=== PATIENT | male | born 1980 | race Caucasian/White ===

== ENCOUNTER → 2022-06-07 | Outpatient (CLI) | payer OTHER, SELFPAY ==
[2022-06-07 12:00] LABS: Erythrocyte Sedimentation Rate 1 mm/hr (0-20)
[2022-06-07 12:04] LABS: Absolute Lymphocyte Count 1.02 X10^3/uL (0.83-4.51); Absolute Neutrophil Count 2.6 X10^3/uL (2.0-7.7); Basophil# 0.03 X10^3/uL; Basophil% 0.7 % (0-1); Eosinophil# 0.07 X10^3/uL; Eosinophils% 1.7 % (0-5); Hematocrit 49.8 % (40-54); Hemoglobin 16.8 g/dL (13.0-16.5); Lymphocyte # 1.02 X10^3/ul (0.83-4.51); Lymphocyte % 24.7 % (19-41); Mean Corp Hgb Conc 33.7 g/dL (32-36); Mean Corpuscular Hgb 28.9 pg (27.0-32.0); Mean Corpuscular Volume 85.7 fL (80-94); Monocyte# 0.42 X10^3/uL; Monocyte% 10.2 % (0-10); NRBC Flagged by Analyzer 0 % (0-5); Neutrophil # 2.58 X10^3/uL (2.7-7.7); Neutrophil % 62.5 % (47-70); Platelet Count 248 K/mm3 (150-450); RBC Distribution Width CV 11.9 % (11.6-14.6); RBC Distribution Width SD 36.9 fl (35.1-43.9); Red Blood Count 5.81 M/mm3 (4.6-6.2); White Blood Count 4.1 K/mm3 (4.4-11.0)
[2022-06-07 13:25] LABS: ALB/GLOB Ratio 1.2 RATIO (0.9-2.4); AST(SGOT) 16 U/L (15-37); Alanine Aminotransfer ALT/SGPT 18 U/L (16-61); Albumin, Serum 4.4 g/dL (3.2-5.0); Alkaline Phosphatase 61 U/L (45-117); Anion Gap 8 (5-15); BUN 16 mg/dL (7-18); BUN/Creat Ratio 14.7 RATIO (10-20); CRP < 2.90 mg/L (0.0-3.0); Calcium,Total 9.9 mg/dL (8.5-10.1); Chloride 105 mmol/L (98-107); Creatinine, Serum 1.09 mg/dL (0.70-1.30); EST Glomerular Filtration Rate 80 mL/min (>60); Est Glom Filt Rate - Afr Amer 96 mL/min (>60); Globulin 3.7 g/dL (2.2-4.2); Glucose 93 mg/dL (74-106); LDH 152 U/L (87-241); Protein, Total 8.1 g/dL (6.4-8.2); Sodium Level 141 mmol/L (136-145)
[2022-06-08 16:09] LABS: Endomysial Antibody IgA Negative (Negative)
[2022-06-09 11:34] LABS: Immunoglobulin A 283 mg/dL (90-386); t-Transglutaminase IgA <2 U/mL (0-3)
[2022-06-13 09:06] LABS: Calprotectin, Stool 37 ug/g (0-120)
[2022-06-15 20:07] LABS: Albumin 4.7 g/dL (2.9-4.4); Alpha-1-Globulins 0.2 g/dL (0.0-0.4); Alpha-2-Globulins 0.6 g/dL (0.4-1.0); Cytoplasmic Ab (C-ANCA) <1:20 titer (Neg:<1:20); Gamma Globulin 0.8 g/dL (0.4-1.8); Immunoglobulin A 293 mg/dL (90-386); Immunoglobulin G 882 mg/dL (603-1613); Immunoglobulin M 76 mg/dL (20-172); PROEL- TOTAL PROTEIN 7.5 g/dL (6.0-8.5)
[2022-06-17 09:31] LABS: Immunoglobulin E 8 IU/mL (6-495); Perinuclear Ab (P-ANCA) <1:20 titer (Neg:<1:20)
== END | disposition home or self-care (01) ==
PROVIDERS: PCP Internal Medicine; Referring Provider Internal Medicine Gastroenterology; Visit Provider Internal Medicine Gastroenterology
DX: K58.9 Irritable bowel syndrome, unspecified (principal); K51.90 Ulcerative colitis, unspecified, without complications
CPT/HCPCS: 36415; 80053; 82784; 82785; 83516; 83615; 83630; 83993; 84165; 85025; 85652; 86140; 86255; 86256; 86334; 87493; 87506

== ENCOUNTER 2022-07-31 10:51 | Day surgery (SDC) | payer OTHER, SELFPAY ==
--- NOTE | 2022-07-31 | COLBX_PTH ---
PATIENT: ROOSEVELT VOGEL LOC: EN U#:[id number] AGE/SX: 42/M ROOM: RE07/31/[address]: Dr. Hermelindo Rojas DO : 1980 BED: DIS: 07/31/2022 SPEC #: [id number] RECD: 07/31/22 13:42 STATUS: DIAMOND RERoque #: [id number] HANNA: 07/31/22 00:[address]: Hermelindo Rojas DEPT: SURGICAL PATHOLOGY RECD BY: Kaleb Shetty ENTERED: 07/31/22 13:43 SP TYPE: COLON BX KIRILL DR: Dr. Gege Wan, Tissues: A - Cecum, NOS B - Ascending colon C - Transverse colon D - Descending colon E - Sigmoid colon biopsy F - Rectum, NOS Procedures: Surgery Specimen Level IV HEADER OPERATION: Colonoscopy (MAC), biopsy PRE-OP DIAGNOSIS: Ulcerative colitis TISSUE SUBMITTED: A ? Cecum biopsy, B ? Ascending colon biopsy, C ? Transverse colon biopsy, D ? Descending colon biopsy, E ? Sigmoid biopsy, F ? Rectum biopsy MICROSCOPIC DIAGNOSIS A. Cecum, biopsy: Fragments of colonic mucosa, no pathologic diagnosis. B. Ascending colon, biopsy: Fragments of colonic mucosa, no pathologic diagnosis. C. Transverse colon, biopsy: Fragments of colonic mucosa, no pathologic diagnosis. D. Descending colon, biopsy: Fragments of colonic mucosa, no pathologic diagnosis. E. Sigmoid colon, biopsy: Focal mild chronic active colitis. See microscopic description and comment. F. Rectum, biopsy: Focal mild chronic active colitis. See microscopic description and comment. SJ:halima 08/01/2022 COMMENT E & F. Correlation with clinical, endoscopic findings and appropriate follow up are necessary. MICROSCOPIC DESCRIPTION Slides are reviewed. E & F. The specimen shows fragments of colonic mucosa with focal acute and chronic inflammatory cell infiltrates in the lamina propria and minimal granular distortion. Specimen F, rectum biopsy shows focal minimal cryptitis. Crypt abscesses or granulomas are not seen. No evidence of dysplasia. GROSS DESCRIPTION A - Received in fixative is one container labeled with the patient's name and designated cecum biopsy. The specimen consists of multiple irregular fragments of light medina soft tissue that in aggregate measure 1 x 0.2 x 0.1 cm. The specimen is totally submitted in one cassette. B - Received in fixative is one container labeled with the patient's name and designated ascending colon biopsy. The specimen consists of multiple irregular fragments of light medina soft tissue that in aggregate measure 1.2 x 0.3 x 0.1 cm. The specimen is totally submitted in one cassette. C - Received in fixative is one container labeled with the patient's name and designated transverse colon biopsy. The specimen consists of multiple irregular fragments of light medina soft tissue that in aggregate measure 1.5 x 0.5 x 0.1 cm. The specimen is totally submitted in one cassette. D - Received in fixative is one container labeled with the patient's name and designated descending colon biopsy. The specimen consists of multiple irregular fragments of light medina soft tissue that in aggregate measure 1.5 x 0.5 x 0.1 cm. The specimen is totally submitted in one cassette. E - Received in fixative is one container labeled with the patient's name and designated sigmoid biopsy. The specimen consists of multiple irregular fragments of light medina soft tissue that in aggregate measure 2 x 0.5 x 0.1 cm. The specimen is totally submitted in one cassette. F - Received in fixative is one container labeled with the patient's name and designated rectum biopsy. The specimen consists of multiple irregular fragments of light medina soft tissue that in aggregate measure 1 x 0.3 x 0.1 cm. The specimen is totally submitted in one cassette. / SJ:rg 07/31/2022 TC:2 CPT: 24799 x6
[2022-07-31] MEDS: Lactated Ringers 1,000 ML 15 ML IV (11:05)
[2022-07-31 11:15] VITALS: BP 156/93; PULSE 63; RESP 17; TEMP 37.3; O2SAT 98; BMI 23.1
--- NOTE | 2022-07-31 11:50 | PCM.HP.BLA ---
History and Physical Date of Admission: 07/31/22 ROOSEVELT VOGEL, is a 42 M who presents to the office today for [place] established with this clinic 06.07.22 with referral from PCP to evaluate blood in stool (mostly just with wiping) without painful BM or constipation for 2-3 years. Established with another GI in [place] where he had a colonoscopy which he reports as normal. Scheduled for repeat colonoscopy but was rescheduled multiple times and for this would like to change care providers. 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 Mesalamine PO and suppository utilized starting and did not produce any changes in blood presence. ESR and CRP in 2020 WNL. In the last several months the frequency of blood has reduced. Though in the last few months he has had lower abdominal/pelvic pain that lasts for a day or two and spontaneously resolves and occurs every 1-[address] abd/pel 01.13.2020 at outside facility with stool seen throughout colon. Otherwise unremarkable. Colonoscopy 02.25.2020 [facility] finding mucosal inflammation in rectum with friability. Rectal pathology reports focal active cryptitis with focal abscess formation of rectum. ROS Const Constitutional: No anorexia, fatigue, fever(s), weight change or sleep problems Eyes Eyes: No change in vision ENT ENT: No abnormal hearing, difficulty swallowing, mouth lesions, tongue swelling or throat swelling Resp Respiratory: No cough or shortness of breath Cardio Cardiology: No chest pain at rest, chest pain with exertion, shortness of breath or dyspnea on exertion Gastro GI: No difficulty swallowing Genitourinary Male: No difficulty urinating or burning urination Musc Musculoskeletal: No joint pain, joint swelling, muscle weakness or decreased muscle mass Skin Skin: No hair loss in leg, yellowing of the eye, itchy eyes, rash, skin ulcer or skin swelling Neuro Neurology: No abnormal hearing, abnormal movements, confusion, unsteady gait/balance or memory loss Psych Psychiatric: No anxiety, No confusion and No memory loss Endo Endocrine: No fatigue or weight change Aller/Imm Allergy/Immunologic: No itchy eyes, throat swelling or tongue swelling Jey/Lymp Hematologic/Lymphatic: No easy bleeding, easy bruising or enlarged lymph nodes Exam Const General: cooperative and comfortable Nutritional Appearance: average body habitus and well nourished HENMT Head: normal to inspection Ears: hearing grossly normal bilaterally Nose: external nose normal Face and sinus: normal facial exam Mouth: oral mucosae normal Throat: posterior oropharynx normal Eyes General: appearance normal, both eyes and all related structures Neck Neck: normal visual inspection Chest Chest palpation & inspection: normal inspection of the chest and normal palpation of entire chest wall Resp Effort & Inspection: normal respiratory effort Auscultation: Bilateral: Clear to Auscultation Cardio Palpation: normal PMI Rate: regular rate Rhythm: regular rhythm GI Inspection: normal to inspection Auscultation: normal bowel sounds Percussion: normal to percussion Palpation: no hepatosplenomegaly Skin General: no rashes or lesions noted Neuro General: patient alert Extrem General: normal to inspection Psych Affect: normal affect Quality Reporting Tobacco Screening ([facility] 138) Smoking Status: Never smoker Assessment and Plan Assessment and Plan (1) Ulcerative colitis: ?Status:?Chronic ?Plan: We will get stool testing along with biochemical testing for his ulcerative colitis.? We will also colonoscopy to evaluate his colon.? He was explained alternatives, risk, benefits including understanding bleeding, infection, sepsis, perforation, need for surgery and .? He will have an ASA of 1. ? ? ? Orders: Orders OVA+PARA w/Giardia EIA [id number] 06/07/22. - Ulcerative colitis, unspecified, without complications ? Comprehensive Metabolic Profil 06/07/22. - Ulcerative colitis, unspecified, without complications ? CRP 06/07/22.90 - Ulcerative colitis, unspecified, without complications ? LDH 06/07/22. - Ulcerative colitis, unspecified, without complications ? CBC W/Diff, Automated 06/07/22. - Ulcerative colitis, unspecified, without complications ? Erythrocyte Sed Rate 06/07/22.90 - Ulcerative colitis, unspecified, without complications ? Stool Lactoferrin/WBC 06/07/22 K51.90 - Ulcerative colitis, unspecified, without complications, K58.9 - Irritable bowel syndrome without diarrhea ? ANCA 06/07/22. - Ulcerative colitis, unspecified, without complications ? Celiac Disease Profile 06/07/22. - Ulcerative colitis, unspecified, without complications ? Immunoglobulin E 06/07/22. - Ulcerative colitis, unspecified, without complications ? RUPESH + Protein Elect, Serum 10/13/22 K51.90 - Ulcerative colitis, unspecified, without complications ? Calprotectin, Stool 06/07/22 K51.90 - Ulcerative colitis, unspecified, without complications ? CDIFF (PCR) 06/07/22 K51.90 - Ulcerative colitis, unspecified, without complications ? ENTERIC PATHOGEN PANEL STOOL 06/07/22 K51.90 - Ulcerative colitis, unspecified, without complications, K58.9 - Irritable bowel syndrome without diarrhea ? I have examined the patient and the H&P has been reviewed. There are no clinical changes since date of exam.
[2022-07-31 12:20] VITALS: BP 109/73; BP 156/93; PULSE 62; RESP 18; TEMP 37.2; O2SAT 99
--- NOTE | 2022-07-31 12:24 | OP.COLON_ITS ---
Patient Name: Kingston Mclaughlin Procedure Date: 07/31/2022 11:45 AM Date of : 1980 Age: 42 Procedure: Colonoscopy Indications: Chronic ulcerative proctosigmoiditis Providers: Hermelindo Rojas DO Medicines: Monitored Anesthesia Care Patient Profile: This is a 42 year old male. Refer to note in patient chart for documentation of history and physical. Last Colonoscopy: within the past 3 years. Complications: No immediate complications. Procedure: Pre-Anesthesia Assessment: - Prior to the procedure, a History and Physical was performed, and patient medications and allergies were reviewed. The patient is competent. The risks and benefits of the procedure and the sedation options and risks were discussed with the patient. All questions were answered and informed consent was obtained. Patient identification and proposed procedure were verified by the physician. Mental Status Examination: normal. CV Examination: normal. Prophylactic Antibiotics: The patient does not require prophylactic antibiotics. Prior Anticoagulants: The patient has taken no previous anticoagulant or antiplatelet agents. ASA Grade Assessment: II - A patient with mild systemic disease. After reviewing the risks and benefits, the patient was deemed in satisfactory condition to undergo the procedure. The anesthesia plan was to use monitored anesthesia care (MAC). Immediately prior to administration of medications, the patient was re-assessed for adequacy to receive sedatives. The heart rate, respiratory rate, oxygen saturations, blood pressure, adequacy of pulmonary ventilation, and response to care were monitored throughout the procedure. The physical status of the patient was re-assessed after the procedure. After I obtained informed consent, the scope was passed under direct vision. Throughout the procedure, the patient's blood pressure, pulse, and oxygen saturations were monitored continuously. The colonoscope was introduced through the anus and advanced to the cecum, identified by appendiceal orifice and ileocecal valve. The colonoscopy was performed without difficulty. The patient tolerated the procedure well. The quality of the bowel preparation was good. Scope In: 11:57:54 AM Scope Withdrawal Time 0 hours 15 minutes 17 seconds Scope Out: 12:16:46 PM Total Procedure Duration Time 0 hours 18 minutes 52 seconds Findings: The perianal and digital rectal examinations were normal. Inflammation was found as patches surrounded by normal mucosa in the rectum. This was graded as Garcia Score 1 (mild, with erythema, decreased vascular pattern, mild friability), and when compared to the previous examination, the findings are unchanged. An area of mildly congested mucosa was found in the sigmoid colon. Biopsies were taken with a cold forceps for histology. Verification of patient identification for the specimen was done. Estimated blood loss was minimal. The majority of the colon appeared to be normal. Specific biopsies were taken from all 6 quadrants in the colon. The terminal ileum appeared normal. Impression: - Mild (Garcia Score 1) ulcerative colitis, unchanged since the last examination. - Congested mucosa in the sigmoid colon. Biopsied. - The examined portion of the ileum was normal. Recommendation: - Discharge patient to home. - Resume previous diet. - Continue present medications. - Await pathology results. - Repeat colonoscopy in 2 years for surveillance. Procedure Code(s): --- Professional --- 63327, Colonoscopy, flexible; with biopsy, single or multiple CPT copyright 2017 [employer]. All rights reserved. The codes documented in this report are preliminary and upon medical billing coder review may be revised to meet current compliance requirements. Hermelindo Rojas DO 07/31/2022 12:24:35 PM This report has been signed electronically. Number of Addenda: 0 Note Initiated On: 07/31/2022 11:45 AM
--- NOTE | 2022-07-31 12:24 | OP.CCLET_ITS ---
07/31/2022 Gege Wan Do Re : Colonoscopy procedure for Kingston Mclaughlin Dear [place] This procedure was performed on Sunday, July 31, 2022. My impressions and recommendations are as follows: Impressions : - Mild (Garcia Score 1) ulcerative colitis, unchanged since the last examination. - Congested mucosa in the sigmoid colon. Biopsied. - The examined portion of the ileum was normal. Recommendations : - Discharge patient to home. - Resume previous diet. - Continue present medications. - Await pathology results. - Repeat colonoscopy in 2 years for surveillance. My findings are described in the full procedure note, which is enclosed. If I can be of further assistance, please feel free to contact me at . Sincerely, Hermelindo Rojas, 07/31/2022 12:24:35 PM This report has been signed electronically.
[2022-07-31 12:25] VITALS: BP 134/83; BP 156/93; PULSE 62; RESP 18; O2SAT 96
[2022-07-31 12:30] VITALS: BP 116/82; BP 156/93; PULSE 57; RESP 18; O2SAT 97
[2022-07-31 12:35] VITALS: BP 121/86; BP 156/93; PULSE 55; RESP 16; TEMP 36.7; O2SAT 98
[2022-07-31 13:02] VITALS: BP 156/93
== END 2022-07-31 13:18 | disposition home or self-care (01) ==
LOC: EN 10:52 → AC 10:53
PROVIDERS: PCP Internal Medicine; Referring Provider Internal Medicine; Visit Provider Internal Medicine Gastroenterology
PROC: 0DJD8ZZ Inspection of Lower Intestinal Tract, Via Natural or Artificial Opening Endoscopic (ICD-10-PCS; CPT 45378; principal; 2022-07-31 11:55)
DX: K51.90 Ulcerative colitis, unspecified, without complications (principal)
CPT/HCPCS: 45380; 88305; J7120; J2405

== ENCOUNTER → 2022-09-05 | Outpatient (CLI) | payer OTHER, SELFPAY ==
[2022-09-08 13:07] LABS: HEPATITIS B SURFACE AG Negative (Negative); Hep C Antibodies <0.1 s/co ratio (0.0-0.9); Hepatitis A IgM Antibody Negative (Negative); Hepatitis B Core AB IgM Negative (Negative); QNTFERON TB Mitogen Value > 10.00 IU/mL (.); QNTFERON TB Nil Value 0.23 IU/mL (.); QNTFERON TB1+ Ag Value 0.46 IU/mL (.); QNTFERON TB2+ Ag Value 0.32 IU/mL (.)
[2022-09-08 14:53] LABS: QNTIFERON TB Positive Criteria Negative (Negative)
== END | disposition home or self-care (01) ==
LOC: LAB 11:26
PROVIDERS: PCP Internal Medicine; Referring Provider Internal Medicine Gastroenterology; Visit Provider Internal Medicine Gastroenterology
DX: K51.90 Ulcerative colitis, unspecified, without complications (principal)
CPT/HCPCS: 36415; 80074; 86480

== ENCOUNTER 2022-10-06 18:04 | Emergency (ER) | payer OTHER, SELFPAY ==
[2022-10-06 18:08] VITALS: BP 155/96; PULSE 89; RESP 18; TEMP 36.8; O2SAT 98; BMI 23.6
[2022-10-06 18:15] VITALS: BP 169/92; PULSE 78; RESP 18; O2SAT 98
--- NOTE | 2022-10-06 18:15 | ED.RN ---
discussed calling stroke alert from triage with Dr Edmond but not evaluated at this time. Pt able to walk to ED room with no current symptoms.
[2022-10-06 18:26] VITALS: BMI 23.6
[2022-10-06 18:31] LABS: Bedside Glucose 111 mg/dL (74-106)
--- NOTE | 2022-10-06 18:46 | CT_ITS ---
INDICATION: slurred speech EXAMINATION: CT BRAIN - CT Head or Brain W/O Contrast Injection TECHNIQUE: Multiple axial images were obtained of the head without intravenous contrast. A radiation dose optimization technique was used for this scan. IV Contrast dosage and agent: None. COMPARISON: None FINDINGS: BRAIN PARENCHYMA: No intra- or extra-axial hemorrhage. No evidence of acute infarct. No intracranial mass or mass effect. There is preservation of the melendez/white matter interface. Posterior fossa structures are unremarkable. CSF SPACES: Appropriate for age. No hydrocephalus. Basal cisterns are patent. CALVARIUM, SKULL BASE, PARANASAL SINUSES AND MASTOID AIR CELLS: Left maxillary sinus mucous tension cyst. No discrete lytic or blastic abnormalities. ORBITS: Both globes, extraocular muscles, optic nerves and retrobulbar fat appear unremarkable. ASPECTS Score for Acute Strokes: 10 CT/Brain/Head without Contrast IMPRESSION: Negative Brain CT without contrast. Electronically Signed: Claus Acuña MD at 19:28 EST ,
--- NOTE | 2022-10-06 18:52 | EX.ED.DYSGE1 ---
HPI <JASWINDER Rodriguez - Last Filed: 10/06/22 19:43> History of Present Illness Chief Complaint: Neuro S/Sx Narrative Narrative: Patient is a 42-year-old male with no significant medical history who presents to the emergency department for blurred vision, difficulty speaking with a total time of lasting 1.5 hours. Patient states that his told him to look outside because there were no clouds in the jose and it was a nice day, he states since then he had some blurred vision. After his vision cleared, he then noticed that he had difficulty saying the word zucchini. He was having difficulty getting it out and was kept saying it wrong. This was also noticed by his . Patient called and EMS friend who told him to go to the ER. Patient on arrival has no symptoms. Patient denies any difficulty speaking, denies any difficulty moving his upper or lower extremities. Patient vision was within normal limit. Patient states that some This did happen 3 to 4 years ago. PFSH <JASWINDER Rodriguez - Last Filed: 10/06/22 19:43> [facility] Medical History (Updated 10/06/22 @ 19:43 by JASWINDER Rodriguez) History of febrile seizure Non-smoker Ulcerative colitis Home Medications NK 03/29/22 [History Last Taken Unknown] Allergy/AdvReac Type Severity Reaction Status Date / Time No Known Allergies Allergy Unverified 07/27/22 09:46 Surgical History History of colonoscopy Social History (Updated 10/06/22 @ 18:[address] Mirella Merchant MD) household members: spouse Smoking Status: Never smoker alcohol intake: current substance use type: does not use ROS <JASWINDER Rodriguez - Last Filed: 10/06/22 19:43> ROS ED ROS Narrative Constitutional: Negative for fever, chills, weight loss, weakness Eyes: Negative for vision loss, vision change, double vision. Positive for blurred vision ENT: Negative for any sore throat, ear pain, congestion Cardiovascular: Negative for any chest pain, tightness, palpitations Respiratory: Negative for any cough, sputum production, hemoptysis, dyspnea, dyspnea on exertion, orthopnea Gastrointestinal: Negative for any abdominal pain, nausea, vomiting, diarrhea, constipation, blood in stool, blood in vomit : Negative for any urinary frequency, dysuria, retention, blood in urine Muscle skeletal: Negative for any muscle joint pain, stiffness, myalgias, arthralgias, neck pain, back pain Neurological: Negative for any headache, syncope, numbness or tingling, dizziness. Positive for difficulty speaking, word finding Skin: Negative for any rashes, lumps, itching, abrasions, lacerations Psychiatric: Negative for any depression, anxiety, stress, suicidal ideation, homicidal ideation Hematologic: Negative for any easy bruising, excessive bruising, easy bleeding Allergies: Negative for any eczema, hives, rash EXAM <JASWINDER Rodriguez - Last Filed: 10/06/22 19:43> Physical Exam Narrative Exam Narrative: Vital signs reviewed. Patient alert and orient x4. Patient is in no distress. Patient is generalized well-appearing, exercises daily. HEET: Head normocephalic atraumatic, TMs clear bilaterally. Posterior pharynx is clear, moist mucous membranes. Nares clear bilaterally. Neck: Supple with no lymphadenopathy or tenderness. No signs of meningismus, negative jolt sign. Cardiac: Regular rate and rhythm no murmurs gallops or rubs, equal peripheral pulses bilaterally. Respiratory: Lungs clear to auscultation bilaterally. No chest tenderness. Abdomen: Soft, nontender, nondistended. No abdominal bruit or pulsatile masses. No hepatosplenomegaly Extremities: No peripheral edema, no signs of gross trauma or deformity. Active full range of motion of all extremities. Neuro: Cranial nerves II through XII intact, no focal neurological deficits. NIH score 0. Skin: Clean dry and intact with no rash, purpura, petechiae, vesicles or pustules. Backs/flank: No CVA tenderness, no midline spinal tenderness, no deformity. Psych: Normal mood and affect. No SI, HI or acute psychosis. Const Vital Signs: 10/06/22 18:08 10/06/22 18:15 10/06/22 19:06 Temperature 98.2 F Temperature Source Temporal Pulse Rate 89 78 Respiratory Rate 18 18 15 Blood Pressure 155/96 H 169/92 H 156/85 H Blood Pressure Mean 115 117 108 Pulse Ox 98 98 97 Oxygen Delivery Method Room Air Room Air Room Air 10/06/22 19:36 Temperature Temperature Source Pulse Rate 80 Respiratory Rate 22 H Blood Pressure 147/96 H Blood Pressure Mean Pulse Ox 97 Oxygen Delivery Method Positive well nourished and well developed General Appearance ED: well developed Neuro oriented x3, CN's II-XII intact bilaterally and no sensory deficits noted <Dr. Sivakumar Alarcon MD - Last Filed: 10/06/22 19:15> Physical Exam Const Vital Signs: 10/06/22 18:08 10/06/22 18:15 10/06/22 19:06 Temperature 98.2 F Temperature Source Temporal Pulse Rate 89 78 Respiratory Rate 18 18 15 Blood Pressure 155/96 H 169/92 H 156/85 H Blood Pressure Mean 115 117 108 Pulse Ox 98 98 97 Oxygen Delivery Method Room Air Room Air Room Air 10/06/22 19:36 Temperature Temperature Source Pulse Rate 80 Respiratory Rate 22 H Blood Pressure 147/96 H Blood Pressure Mean Pulse Ox 97 Oxygen Delivery Method MDM <JASWINDER Rodriguez - Last Filed: 10/06/22 19:43> MDM Lab Data Labs: Laboratory Results - last 24 hr 10/06/22 10/06/22 10/06/22 18:12 18:15 18:15 WBC 7.6 RBC 5.67 Hgb 16.1 Hct 48.7 MCV 85.9 MCH 28.4 MCHC 33.1 RDW Std Deviation 37.8 RDW Coeff of Pérez 12.2 Plt Count 251 MPV 9.2 Immature Gran % (Auto) 0.100 Neut % (Auto) 72.1 H Lymph % (Auto) 17.8 L [place] % (Auto) 6.9 Eos % (Auto) 2.2 Baso % (Auto) 0.9 Absolute Neuts (auto) 5.5 Absolute Lymphs (auto) 1.35 Nucleated RBC % 0 Sodium 140 Potassium 3.6 Chloride 103 Carbon Dioxide 31.0 Anion Gap 6 BUN 17 Creatinine 1.15 Estim Creat Clear Calc 85.39 Est GFR (MDRD) Af Amer 90 Est GFR (MDRD) Non-Af 75 BUN/Creatinine Ratio 14.8 Glucose 108 H Calcium 9.6 POC Glucose 111 H Radiography Diagnostic Testing: Clinical Impression(s) from Imaging Studies Brain CT 10/06/22 18:46 IMPRESSION: Negative Brain CT without contrast. Electronically Signed: Claus Acuña MD at 19:28 EST , EKG Normal sinus rhythm: Attestation: I personally reviewed and interpreted this EKG as follows: Comments: EKG shows normal sinus rhythm, rate of 80 bpm, DC 176 ms, QRS duration 98 ms, no acute ST elevation, no acute infarct noted Treatment and Re-Evaluation Narrative: All radiologic examinations were read, reviewed by the emergency department attending. From these reads, a plan of care will be put in place. Patient appears well, patient appears nontoxic, vital signs are stable. Patient presents to the emergency department with 1.5 hours of intermittent dysphagia, vision change. Patient was brought to the emergency department and has been asymptomatic since. Patient denies stroke scale is 0. Patient denies any headache or dizziness. Patient did receive a CT scan of the brain, this was grossly unremarked for any acute process. EKG was unremarkable. Patient's laboratory values were unremarkable. On reassessment, the patient remained symptom-free. The patient feels well. I discussed with the patient different options, we used shared decision-making, between me the patient and the . The patient will be discharged, follow-up closely with his PCP for further work-up. They were given strict return precaution to return for any worsening symptoms. I did compare the patient's laboratory values to the previous visit, it was consistent. At this time, is no evidence of any CVA, TIA, ACS, CO. Patient will follow outpatient. Stable for discharge <Dr. Sivakumar Alarcon MD - Last Filed: 10/06/22 19:15> [facility] Narrative Medical decision making narrative: I have personally performed a face to face assessment of the patient and have reviewed the JOHNNY Note. I performed a substantive portion of the visit including all aspects of the following. My foster findings include: History is [42-year-old male being evaluated or [employer]. Patient had visual change and then difficulty with his speech both of totally resolved. No headache or head trauma. No recent illness. Prior history of any cardiac disease stroke or mini stroke. He is not diabetic. Similar symptoms several years ago which he thought might be secondary to hypoglycemia. Currently his symptoms have totally resolved. He is back to his baseline. present in the room.] Exam is [42-year-old male no acute distress. Vital signs stable afebrile. HEENT exam unremarkable. Normal speech. No facial droop. Pupils round reactive light extra motions are intact. Neck nontender. Lungs are clear. Heart regular rhythm no murmur. Rate about 80. Abdomen soft nontender. Moving all 4 extremities. Normal strength and sensation. No edema. Neurologically is awake and alert with no focal neurodeficits. NIH is 0.] Medical Decision Making [42-year-old with atypical vision change and dysarthria both resolved. Completely normal exam at this time. CAT scan screening labs and EKG will be obtained. Unlikely to be a stroke or mini stroke but obviously a possibility. Unlikely to be an intracranial bleed or mass.] Other additions or changes: [None] Lab Data Attestation: I reviewed the patient's lab results. Lab results narrative: CBC normal. White count is 7. H&H 16 and 48. Electrolytes normal gap of 6 normal BUN and creatinine. Glucose 108. Labs: Laboratory Results - last 24 hr 10/06/22 10/06/22 10/06/22 18:12 18:15 18:15 WBC 7.6 RBC 5.67 Hgb 16.1 Hct 48.7 MCV 85.9 MCH 28.4 MCHC 33.1 RDW Std Deviation 37.8 RDW Coeff of Pérez 12.2 Plt Count 251 MPV 9.2 Immature Gran % (Auto) 0.100 Neut % (Auto) 72.1 H Lymph % (Auto) 17.8 L [place] % (Auto) 6.9 Eos % (Auto) 2.2 Baso % (Auto) 0.9 Absolute Neuts (auto) 5.5 Absolute Lymphs (auto) 1.35 Nucleated RBC % 0 Sodium 140 Potassium 3.6 Chloride 103 Carbon Dioxide 31.0 Anion Gap 6 BUN 17 Creatinine 1.15 Estim Creat Clear Calc 85.39 Est GFR (MDRD) Af Amer 90 Est GFR (MDRD) Non-Af 75 BUN/Creatinine Ratio 14.8 Glucose 108 H Calcium 9.6 POC Glucose 111 H Radiography Diagnostic Testing: Clinical Impression(s) from Imaging Studies Brain CT 10/06/22 18:46 IMPRESSION: Negative Brain CT without contrast. Electronically Signed: Claus Acuña MD at 19:28 EST , Discharge Plan Triage Chief Complaint: Neuro S/Sx ED Midlevel Provider: Claus Albrecht ED Provider: Sivakumar Alarcon Dx/Rx/DC Orders Clinical Impression: Change in vision, Dysarthria Instructions: What Is Dysarthria, Understanding Vision Problems Prescriptions: No Action NK Primary Care Provider: Gege Wan Referrals: Gege Wan, DO [Primary Care Provider] - Activity Restrictions/Additional Instructions: Please call your PCPs office, states that you had some difficulty speaking as well as some vision change, you need further work-up. You had a negative dry CT scan today. Disposition Disposition: Home, Self Care
[2022-10-06 18:57] LABS: Absolute Lymphocyte Count 1.35 X10^3/uL (0.83-4.51); Absolute Neutrophil Count 5.5 X10^3/uL (2.0-7.7); Basophil# 0.07 X10^3/uL; Basophil% 0.9 % (0-1); Eosinophil# 0.17 X10^3/uL; Eosinophils% 2.2 % (0-5); Hematocrit 48.7 % (40-54); Hemoglobin 16.1 g/dL (13.0-16.5); Lymphocyte # 1.35 X10^3/ul (0.83-4.51); Lymphocyte % 17.8 % (19-41); Mean Corp Hgb Conc 33.1 g/dL (32-36); Mean Corpuscular Hgb 28.4 pg (27.0-32.0); Mean Corpuscular Volume 85.9 fL (80-94); Mean Platelet Vol. 9.2 fl (6.2-12.0); Monocyte# 0.52 X10^3/uL; Monocyte% 6.9 % (0-10); NRBC Flagged by Analyzer 0 % (0-5); Neutrophil # 5.47 X10^3/uL (2.7-7.7); Neutrophil % 72.1 % (47-70); Platelet Count 251 K/mm3 (150-450); RBC Distribution Width CV 12.2 % (11.6-14.6); RBC Distribution Width SD 37.8 fl (35.1-43.9); Red Blood Count 5.67 M/mm3 (4.6-6.2); White Blood Count 7.6 K/mm3 (4.4-11.0)
--- NOTE | 2022-10-06 19:03 | EKG12_ITS ---
Test Reason : DYSRHYTHMIA Blood Pressure : / mmHG Vent. Rate : 080 BPM Atrial Rate : 080 BPM P-R Int : 176 ms QRS Dur : 098 ms QT Int : 366 ms P-R-T Axes : 074 075 069 degrees QTc Int : 422 ms Normal sinus rhythm Normal ECG Confirmed by ESSIE WILLIS, HIRA ([id number]), city editor RAMONITA SOTO ([id number]) on 10/08/2022 12:33:57 PM Referred By: ANGELA Confirmed By:HIRA FOUNTAIN MD
[2022-10-06 19:06] VITALS: BP 156/85; RESP 15; O2SAT 97
[2022-10-06 19:09] LABS: Anion Gap 6 (5-15); BUN 17 mg/dL (7-18); BUN/Creat Ratio 14.8 RATIO (10-20); Calcium,Total 9.6 mg/dL (8.5-10.1); Chloride 103 mmol/L (98-107); Creatinine, Serum 1.15 mg/dL (0.70-1.30); EST Glomerular Filtration Rate 75 mL/min (>60); Est Glom Filt Rate - Afr Amer 90 mL/min (>60); Estimated Creatinine Clearance 85.39 ml/min; Glucose 108 mg/dL (74-106); Potassium 3.6 mmol/L (3.5-5.1); Sodium Level 140 mmol/L (136-145)
[2022-10-06 19:36] VITALS: BP 147/96; PULSE 80; RESP 22; O2SAT 97
[2022-10-06 19:52] VITALS: BP 147/96; PULSE 80; RESP 20; O2SAT 97
== END 2022-10-06 19:52 | disposition home or self-care (01) ==
PROVIDERS: Nurse Practitioner; Emergency Provider Emergency Medicine; PCP Internal Medicine; Visit Provider Emergency Medicine
DX: R47.1 Dysarthria and anarthria (principal); H53.9 Unspecified visual disturbance
CPT/HCPCS: 70450; 80048; 82962; 85025; 93005; 99283; A4216

== ENCOUNTER → 2023-07-09 | Outpatient (CLI) | payer OTHER, SELFPAY ==
[2023-07-09 10:03] LABS: Erythrocyte Sedimentation Rate 1 mm/hr (0-20)
[2023-07-09 10:09] LABS: Absolute Lymphocyte Count 1.42 X10^3/uL (0.83-4.51); Absolute Neutrophil Count 2.2 X10^3/uL (2.0-7.7); Basophil# 0.04 X10^3/uL; Eosinophil# 0.13 X10^3/uL; Eosinophils% 3.1 % (0-5); Hemoglobin 17.2 g/dL (13.0-16.5); Lymphocyte # 1.42 X10^3/ul (0.83-4.51); Lymphocyte % 33.7 % (19-41); Mean Corp Hgb Conc 33.7 g/dL (32-36); Mean Corpuscular Volume 85.9 fL (80-94); Monocyte# 0.42 X10^3/uL; NRBC Flagged by Analyzer 0 % (0-5); Neutrophil % 52.2 % (47-70); Platelet Count 230 K/mm3 (150-450); RBC Distribution Width CV 11.9 % (11.6-14.6); RBC Distribution Width SD 37.5 fl (35.1-43.9); Red Blood Count 5.94 M/mm3 (4.6-6.2); White Blood Count 4.2 K/mm3 (4.4-11.0)
[2023-07-09 10:34] LABS: ALB/GLOB Ratio 1.3 RATIO (0.9-2.4); AST(SGOT) 15 U/L (15-37); Alanine Aminotransfer ALT/SGPT 26 U/L (16-61); Albumin, Serum 4.4 g/dL (3.2-5.0); Alkaline Phosphatase 61 U/L (45-117); Anion Gap 5 (5-15); BUN 14 mg/dL (7-18); BUN/Creat Ratio 12.7 RATIO (10-20); CRP < 2.90 mg/L (0.0-3.0); Calcium,Total 9.2 mg/dL (8.5-10.1); Chloride 103 mmol/L (98-107); EST Glomerular Filtration Rate 78 mL/min (>60); Est Glom Filt Rate - Afr Amer 95 mL/min (>60); Globulin 3.5 g/dL (2.2-4.2); Glucose 96 mg/dL (74-106); Potassium 3.7 mmol/L (3.5-5.1); Protein, Total 7.9 g/dL (6.4-8.2); Sodium Level 139 mmol/L (136-145)
[2023-07-15 21:07] LABS: Calprotectin, Stool 236 ug/g (0-120)
== END | disposition home or self-care (01) ==
PROVIDERS: PCP Internal Medicine; Referring Provider Internal Medicine Gastroenterology; Visit Provider Internal Medicine Gastroenterology
DX: K51.90 Ulcerative colitis, unspecified, without complications (principal)
CPT/HCPCS: 36415; 80053; 83630; 83993; 85025; 85652; 86140

== ENCOUNTER → 2024-04-23 | Outpatient (CLI) | payer OTHER, SELFPAY ==
[2024-04-23 08:27] LABS: CRP < 2.90 mg/L (0.0-3.0)
[2024-04-23 08:33] LABS: Erythrocyte Sedimentation Rate < 1 mm/hr (0-20)
[2024-04-25 18:07] LABS: QNTFERON TB Mitogen Value > 10.00 IU/mL (.); QNTFERON TB Nil Value 0 IU/mL (.); QNTFERON TB1+ Ag Value 0.01 IU/mL (.); QNTFERON TB2+ Ag Value 0 IU/mL (.); QNTIFERON TB Positive Criteria Negative (Negative)
[2024-04-26 00:06] LABS: Calprotectin, Stool 24 ug/g (0-120)
== END | disposition home or self-care (01) ==
LOC: LAB 07:10
PROVIDERS: PCP Internal Medicine; Referring Provider Internal Medicine Gastroenterology; Visit Provider Internal Medicine Gastroenterology
DX: K51.90 Ulcerative colitis, unspecified, without complications (principal); K58.9 Irritable bowel syndrome, unspecified
CPT/HCPCS: 36415; 83630; 83993; 85652; 86140; 86480; 87177; 87209; 87329; 87506

== ENCOUNTER 2024-09-09 10:43 | Day surgery (SDC) | payer OTHER, SELFPAY ==
--- NOTE | 2024-09-09 11:00 | PRE.ANES_ITS ---
ASA Classification* ASA Classification ASA Classification: 2 Assessment & Plan Anesthesia* Anesthesia Assessment Anesthesia Assessment: Discussed sedation and/or anesthesia options, risks, benefits, and alternatives with patient/parents/legal guardian/POA. Questions invited. The patient/parents/legal guardian/POA seems to understand and agrees to proceed with anesthesia plan. Reviewed the physical assessment, medical history, allergy history and patient home medications list prior to surgery/procedure/anesthetic and documented any changes. Performed airway and anesthesia risk assessments. Anesthesia Type Anesthesia Type: MAC Anesthesia Focused Assessment* Airway Assessment Mouth opens: >3 cm Mallampati Score: II Focused Labs Anesthesia Preop lab: CBC WBC 4.2 K/mm3 (4.4-11.0) L 07/09/23 09:19 RBC 5.94 M/mm3 (4.6-6.2) 07/09/23 09:19 Hgb 17.2 g/dL (13.0-16.5) H 07/09/23 09:19 Hct 51.0 % (40-54) 07/09/23 09:19 Plt Count 230 K/mm3 (150-450) 07/09/23 09:19 CHEMISTRY Potassium 3.7 mmol/L (3.5-5.1) 07/09/23 09:19 Sodium 139 mmol/L (136-145) 07/09/23 09:19 BUN 14 mg/dL (7-18) 07/09/23 09:19 Creatinine 1.10 mg/dL (0.70-1.30) 07/09/23 09:19 Glucose 96 mg/dL (74-106) 07/09/23 09:19 POC Glucose 111 mg/dL (74-106) H 10/06/22 18:12 COAG Pre-Assessment Diagnosis/Proposed Procedure Planned Operative Procedure(s): CSCOPE Anesthesia History 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 When Was Last Pacemaker Check QUESTION #4 FULL TEXT: You/Your Family Experience fever (hyperthermia) with Anesthesia Last Oral Intake Last Oral intake: Last Oral Intake NPO since Meds taken in AM with sips of water? 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 mechanic Female No 09/07/24 13:01 HX of Motion Sickness No 09/07/24 13:01 HX of N/V After Surgery No 09/07/24 13:01 Non-Smoker Yes 09/07/24 13:01 Duration of Surgery greater No 09/07/24 13:01 than 60 minutes Number of Risk Factors 1 09/07/24 13:01 PONV Score Low Risk 09/07/24 13:01 Height & Weight Height & Weight: Anesthesia: Height & Weight Height 5 ft 9 in 10/06/22 18:26 Respiratory Assessment Respiratory Assessment - sewing machine maintenance mechanic: Respiratory Tract Infection Hx - sewing machine maintenance mechanic Hx Respiratory Tract Infection No 09/07/24 13:01 STOP Sleep Apnea STOP Sleep Apnea - sewing machine maintenance mechanic: STOP Sleep Apnea - sewing machine maintenance mechanic Hx Hypertension No 09/07/24 13:01 Hx Sleep Apnea No 09/07/24 13:01 CPAP BIPAP Do you snore loudly (louder No 09/07/24 13:01 than talking or can be heard Do you often feel tired/ No 09/07/24 13:01 fatigued/ sleepy during daytime? Has anyone observed you stop No 09/07/24 13:01 breathing during sleep? STOP Results Negative 09/07/24 13:01 QUESTION #5 FULL TEXT : Do you snore loudly (louder than talking or can be heard through closed doors)? 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: Tobacco Use History - sewing machine maintenance mechanic Tobacco Use Smoking Status Never smoker 09/07/24 13:01 Hx Tobacco Use No 09/07/24 13:01 Years Smoking Packs Smoked per Day Smoking Cessation Date was within the last 15 years Hx Smoking Cessation Date Hx Smoking Cessation Counseling Hematologic Medial History Hematologic Hx - sewing machine maintenance mechanic: Hematologic Medical Hx - rn admit Hx of Blood Transfusion No 09/07/24 13:01 Hx of Transfusion in last 3 No 09/07/24 13:01 Months Date of Last Transfusion (if within last 3 months) Ever experience any problems No 09/07/24 13:01 with transfusion(s)? Specify any problems Hx of Preganancy in last 3 N/A 09/07/24 13:01 Months Nurse Filling Out Transfusion NBUCHER 09/07/24 13:01 & Questions: Date: 09/07/24 09/07/24 13:01 Time: 13:02 09/07/24 13:01 Patient unable to answer at this time (ie. confused, unrespo /Reproduction History /Reproductive History - sewing machine maintenance mechanic: /Reproductive Hx- sewing machine maintenance mechanic Hx Now No 09/07/24 13:01 Gestational Age (in weeks): EDC: Hx Hx Para Hx Section SAB No 09/07/24 13:01 [facility] Medical History History of febrile seizure Non-smoker Ulcerative colitis Home Medications ?Medication ?Instructions ?Recorded ?Last Taken ?Type upadacitinib 30 mg tablet,extended 30 mg PO DAILY #90 tabs 09/13/23 Unknown Rx release 24 hr (Rinvoq) Allergy/AdvReac Type Severity Reaction Status Date / Time No Known Allergies Allergy Verified 09/07/24 13:00 Surgical History History of colonoscopy Social History household members: spouse Smoking Status: Never smoker alcohol intake: current substance use type: does not use Review of Systems (Anesthesia) ROS Narrative System reviewed and no additional complaints, except as documented.
--- NOTE | 2024-09-09 11:04 | HP.PCM_ITS ---
HPI - General General Date of Admission: 09/09/24 Date of Service: 09/09/24 Chief Complaint: Ulcerative colitis HPI Narrative ROOSEVELT VOGEL, is a 44 M who presentsJOANA VOGEL, is a 44 M who presents for a follow up colonoscopy. CT abd/pel 01.13.2020 O[facility] stool seen throughout colon. Otherwise unremarkable. Colonoscopy 02.25.2020 [facility] mucosal inflammation in rectum with friability. Rectal pathology reports focal active cryptitis with focal abscess formation of rectum. *[facility] established 06.07.22 with referral from PCP to evaluate blood in stool (mostly just with wiping) without painful BM or constipation for 2-3 years. Established with another GI in [place] where he had a colonoscopy which he reports as normal. Scheduled for repeat colonoscopy but was rescheduled multiple times and for this would like to change care providers. 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 Mesalamine PO and suppository utilized starting and did not produce any changes in blood presence. ESR and CRP in 2020 WNL. In the last several months the frequency of blood has reduced. Though in the last few months he has had lower abdominal/pelvic pain that lasts for a day or two and spontaneously resolves and occurs every 1-2 months. Biochemical CBC, ESR, CMP, LDH, CRP, ANCA, celiac, GAME without pertinent abnormality. RUPESH albumin H4.7 Stool studies enteric pathogen, C.Diffiicile, calprotectin WNL. OP not run. Lactoferrin + Colonoscopy 07.31.22 May Score 1 UC; congested mucosa of sigmoid colon. Focal mild chronic active colitis of sigmoid colon and rectum. Cecum, ascending, transverse, descending colons without pathologic changes. OV 09.05.22 doing well without active UC symptoms. Start Humira. ? Biochemical Hepatitis screen and TB WNL. 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 The start of Humira was delayed while that was being organized. His deployment was ultimately cancelled and he remains stateside. Humira was eventually started. ? Biochemical 07.09.23 CBC, ESR, CMP, CRP without pertinent abnormality. ? Stool calprotectin H236, lactoferrin +, Humira 15/ab low/moderate+ Contact 08.01.23 with choice of Rinvoq over Stelara. Reports need for clinical data for his medical team, requesting contact information for them. OV 2. reports he is doing well without symptoms of concern at this time OV 8 Patient has been doing well on Rinvoq. Her has had no current complaints. He denies abdominal pain, diarrhea, constipation, melena, hematochezia, or heartburn. [facility] Medical History History of febrile seizure Non-smoker Ulcerative colitis Home Medications ?Medication ?Instructions ?Recorded ?Last Taken ?Type upadacitinib 30 mg tablet,extended 30 mg PO DAILY #90 tabs 09/13/23 Unknown Rx release 24 hr (Rinvoq) Allergy/AdvReac Type Severity Reaction Status Date / Time No Known Allergies Allergy Verified 09/07/24 13:00 Surgical History History of colonoscopy Social History household members: spouse Smoking Status: Never smoker alcohol intake: current substance use type: does not use ROS Constitutional Constitutional: Denies fatigue, fever(s), poor appetite, weight gain or weight loss Gastrointestinal Gastrointestinal: Denies belching, bloating, change in bowel habits, change in stool character, chewing difficulty, coffee ground emesis, constipation, mothercraft nurse mping, diarrhea, dyspepsia, dysphagia, early satiety, excessive flatus, fecal incontinence, heartburn, hematemesis, hematochezia, hemorrhoids, loose stools, melena, nausea, odynophagia, rectal bleeding, tenesmus, vomiting or weight changes Physical Exam Const alert, oriented x3, no apparent distress and healthy appearing General Appearance: cooperative GI normal to inspection, nondistended, normoactive bowel sounds, soft to palpation, non-tender and non-distended Percussion: normal to percussion Rectal Exam: deferred Assessment & Plan Assessment/Plan (1) Ulcerative colitis: PLAN: Assessment and Plan Assessment and Plan (1) Ulcerative colitis: Status: Chronic Plan: Patient is here today for f/u for his UC. He has been doing well on Rinvoq therapy. He has no complaints -ESR and CRP were wnl -Still waiting on calprotectin result -He will schedule for colonoscopy. Last colon in July of 2022 -Discussed possibility of tapering down medications once we have objective and subjective evidence of remission -He will f/u after his colonoscopy
[2024-09-09 11:18] VITALS: BP 159/86; PULSE 65; RESP 16; TEMP 36.7; O2SAT 100; BMI 24.4
--- NOTE | 2024-09-09 11:45 | COLBX_PTH ---
PATIENT: ROOSEVELT VOGEL LOC: EN U#:[id number] AGE/SX: 44/M ROOM: RE09/09/[address]: Dr. Hermelindo Rojas DO : 1980 BED: DIS: 09/09/2024 SPEC #: [id number] RECD: 09/09/24 14:40 STATUS: DIAMOND RESHMA #: [id number] HANNA: 09/09/24 11:[address]: Hermelindo Rojas DEPT: SURGICAL PATHOLOGY RECD BY: Corrie Nair ENTERED: 09/10/24 08:13 SP TYPE: COLON BX KIRILL DR: Dr. Gege Wan DO Tissues: A - Ileum, NOS B - COLON BIOPSY C - Transverse colon D - COLON BIOPSY E - Rectum, NOS Procedures: Surgery Specimen Level IV HEADER OPERATION: Colonoscopy with biopsy PRE-OP DIAGNOSIS: Ulcerative colitis TISSUE SUBMITTED: A- Terminal ileum biopsy, B- Right side colon biopsy, C- Transverse colon biopsy,D- Left side colon biopsy, E- Rectum biopsy MICROSCOPIC DIAGNOSIS A. Terminal ileum, biopsy: A fragment of small intestine mucosa, no pathologic diagnosis. B. Right side colon, biopsy: Fragments of colonic mucosa, no pathologic diagnosis. C. Transverse colon, biopsy: Fragments of colonic mucosa, no pathologic diagnosis. D. Left side colon, biopsy: Fragments of colonic mucosa, no pathologic diagnosis. E. Rectum, biopsy: A fragment of colonic mucosa, no pathologic diagnosis. 09/11/2024 COMMENT Correlation with clinical, endoscopic findings and appropriate follow up are necessary. MICROSCOPIC DESCRIPTION Slides are reviewed. GROSS DESCRIPTION A. Received in fixative is one container labeled with the patient's name and designated Terminal ileum biopsy. The specimen consists of one irregular fragment of light [place] soft tissue that measures 0.5 x 0.3 x 0.2 cm. The specimen is totally submitted in one cassette. B. Received in fixative is one container labeled with the patient's name and designated Right side colon biopsy. The specimen consists of multiple irregular fragments of light [place] soft tissue that in aggregate measure 1.5 x 0.5 x 0.2 cm. The specimen is totally submitted in one cassette. C. Received in fixative is one container labeled with the patient's name and designated Transverse colon biopsy. The specimen consists of three irregular fragments of light [place] soft tissue that in aggregate measure 1.0 x 0.3 x 0.2 cm. The specimen is totally submitted in one cassette. D. Received in fixative is one container labeled with the patient's name and designated Left side colon biopsy. The specimen consists of multiple irregular fragments of light [place] soft tissue that in aggregate measure 1.5 x 0.7 x 0.2 cm. The specimen is totally submitted in one cassette. E. Received in fixative is one container labeled with the patient's name and designated Rectum biopsy. The specimen consists of one irregular fragment of light [place] soft tissue that measures 0.5 x 0.5 x 0.2 cm. The specimen is totally submitted in one cassette. 09/09/2024 TC:4 CPT:[id number]
[2024-09-09 11:50] VITALS: BP 114/80; BP 159/86; PULSE 66; RESP 16; TEMP 36.4; O2SAT 96
--- NOTE | 2024-09-09 11:52 | PCM.POST.ANE ---
Anesthesia: Postop Eval I Current Vital Signs Temperature: 97.2 F Pulse Rate: 64 Blood Pressure: 114/80 Respiratory Rate: 16 Pulse Ox: 98 Oxygen Delivery Method: Room Air Assessment Airway patent: Yes Spontaneous unlabored respirations: Yes Mental status: Asleep nausea: No Vomiting: No Anesthesia Complication: No Fluid Hydration Crystalloid volume administer (ml): 40 Total IV fluid infused: 40 Progress Note Anesthesia document: Postop Eval 1 completed: Yes
[2024-09-09 11:53] VITALS: BP 114/80; PULSE 64; RESP 16; TEMP 36.2; O2SAT 98
--- NOTE | 2024-09-09 11:53 | OP.COLON_ITS ---
Patient Name: Kingston Mclaughlin Procedure Date: 09/09/2024 11:12 AM Date of : 1980 Age: 44 Procedure: Colonoscopy Indications: Disease activity assessment of left-sided chronic ulcerative colitis, Assess therapeutic response to therapy of left-sided chronic ulcerative colitis Providers: Hermelindo Rojas DO Referring MD: Gege Wan Do Medicines: Monitored Anesthesia Care Patient Profile: This is a 44 year old male. Refer to note in patient chart for documentation of history and physical. Last Colonoscopy: within the past 3 years. Complications: No immediate complications. Procedure: Pre-Anesthesia Assessment: - Prior to the procedure, a History and Physical was performed, and patient medications and allergies were reviewed. The patient is competent. The risks and benefits of the procedure and the sedation options and risks were discussed with the patient. All questions were answered and informed consent was obtained. Patient identification and proposed procedure were verified by the physician in the pre-procedure area. Mental Status Examination: alert and oriented. Airway Examination: normal oropharyngeal airway and neck mobility. Respiratory Examination: clear to auscultation. CV Examination: normal. Prophylactic Antibiotics: The patient does not require prophylactic antibiotics. Prior Anticoagulants: The patient has taken no anticoagulant or antiplatelet agents except for NSAID medication. ASA Grade Assessment: II - A patient with mild systemic disease. After reviewing the risks and benefits, the patient was deemed in satisfactory condition to undergo the procedure. The anesthesia plan was to use monitored anesthesia care (MAC). Immediately prior to administration of medications, the patient was re-assessed for adequacy to receive sedatives. The heart rate, respiratory rate, oxygen saturations, blood pressure, adequacy of pulmonary ventilation, and response to care were monitored throughout the procedure. The physical status of the patient was re-assessed after the procedure. After I obtained informed consent, the scope was passed under direct vision. Throughout the procedure, the patient's blood pressure, pulse, and oxygen saturations were monitored continuously. The adult colonoscope was introduced through the anus and advanced to the cecum, identified by appendiceal orifice and ileocecal valve. The colonoscopy was performed without difficulty. The patient tolerated the procedure well. The quality of the bowel preparation was adequate. The terminal ileum, ileocecal valve, appendiceal orifice, and rectum were photographed. Scope In: 11:32:54 AM Scope Withdrawal Time 0 hours 7 minutes 23 seconds Scope Out: 11:43:22 AM Total Procedure Duration Time 0 hours 10 minutes 28 seconds Findings: The perianal and digital rectal examinations were normal. Inflammation was not found based on the endoscopic appearance of the mucosa in the colon. This was graded as Garcia Score 0 (normal or inactive disease), and when compared to the previous examination, the findings are improved. Biopsies were taken with a cold forceps for histology. Verification of patient identification for the specimen was done. Estimated blood loss was minimal. The terminal ileum appeared normal. Biopsies were taken with a cold forceps for histology. Verification of patient identification for the specimen was done. Estimated blood loss was minimal. Impression: - Inactive (Garcia Score 0) ulcerative colitis, improved since the last examination. Biopsied. - The examined portion of the ileum was normal. Biopsied. Recommendation: - Discharge patient to home. - Resume previous diet. - Continue present medications. - Await pathology results. - Repeat colonoscopy in 2 years for surveillance. Procedure Code(s): --- Professional --- 08722, Colonoscopy, flexible; with biopsy, single or multiple CPT copyright 2021 [employer]. All rights reserved. The codes documented in this report are preliminary and upon forensic engineer review may be revised to meet current compliance requirements. Hermelindo Rojas DO 09/09/2024 11:52:45 AM This report has been signed electronically. Number of Addenda: 0 Note Initiated On: 09/09/2024 11:12 AM
--- NOTE | 2024-09-09 11:53 | OP.CCLET_ITS ---
09/09/2024 Gege Wan Do Re : Colonoscopy procedure for Kingston Mclaughlin [place] This procedure was performed on Monday, September 09, 2024. My impressions and recommendations are as follows: Impressions : - Inactive (Garcia Score 0) ulcerative colitis, improved since the last examination. Biopsied. - The examined portion of the ileum was normal. Biopsied. Recommendations : - Discharge patient to home. - Resume previous diet. - Continue present medications. - Await pathology results. - Repeat colonoscopy in 2 years for surveillance. My findings are described in the full procedure note, which is enclosed. If I can be of further assistance, please feel free to contact me at . Sincerely, Hermelindo Rojas, 09/09/2024 11:52:45 AM This report has been signed electronically.
[2024-09-09 11:55] VITALS: BP 108/77; BP 159/86; PULSE 59; RESP 16; O2SAT 97
[2024-09-09 12:00] VITALS: BP 115/80; BP 159/86; PULSE 57; RESP 16; TEMP 36.6; O2SAT 97
[2024-09-09 12:20] VITALS: BP 159/86
--- NOTE | 2024-09-09 13:01 | PCM.POSTANE2 ---
Anesthesia Postop Eval I Sum Postop Eval Completion status Anesthesia document: Postop Eval 1 completed: Yes Anesthesia Postop Eval I Summary Anesthesia Postop Eval I Summary: Anesthesia Postop Eval I: Assessment Summary Airway patent Yes 09/09/24 11:53 [email or web address] Spontaneous unlabored Yes 09/09/24 11:53 [email or web address] respirations Mental status Asleep 09/09/24 11:53 [email or web address] nausea No 09/09/24 11:53 [email or web address] Vomiting No 09/09/24 11:53 [email or web address] Anesthesia Postop Eval I: Fluid Summary Crystalloid volume administer 40 09/09/24 11:53 [email or web address] (ml) Colloids volume administered ( ml) Blood Product volume administered (ml) Total IV fluid infused 40 09/09/24 11:53 [email or web address] Anesthesia Postop Eval I: Summary Notes Anesthesia Complication No 09/09/24 11:53 [email or web address] Anesthesia Complication Comment: Post-operative progress note Anesthesia: Postop Eval II Evaluation Mental status: Awake Pain Level: 0 nausea: No Vomiting: No
== END 2024-09-09 12:29 | disposition home or self-care (01) ==
LOC: EN 10:44 → AC 10:47
PROVIDERS: PCP Internal Medicine; Referring Provider Internal Medicine; Visit Provider Internal Medicine Gastroenterology
PROC: 0DJD8ZZ Inspection of Lower Intestinal Tract, Via Natural or Artificial Opening Endoscopic (ICD-10-PCS; CPT 45378; principal; 2024-09-09 11:40)
DX: K63.89 Other specified diseases of intestine (principal); K51.90 Ulcerative colitis, unspecified, without complications; Z79.899 Other long term (current) drug therapy
CPT/HCPCS: 45380

== ENCOUNTER → 2024-09-23 | Outpatient (CLI) | payer OTHER, SELFPAY ==
[2024-09-23 16:14] LABS: Absolute Lymphocyte Count 0.71 X10^3/uL (0.83-4.51); Absolute Neutrophil Count 5.4 X10^3/uL (2.0-7.7); Basophil# 0.05 X10^3/uL; Basophil% 0.7 % (0-1); Lymphocyte # 0.71 X10^3/ul (0.83-4.51); Lymphocyte % 10.5 % (19-41); Mean Corp Hgb Conc 34.8 g/dL (32-36); Mean Corpuscular Hgb 29.7 pg (27.0-32.0); Mean Corpuscular Volume 85.5 fL (80-94); Mean Platelet Vol. 8.5 fl (6.2-12.0); Monocyte# 0.65 X10^3/uL; Monocyte% 9.6 % (0-10); NRBC Flagged by Analyzer 0 % (0-5); Neutrophil # 5.35 X10^3/uL (2.7-7.7); Neutrophil % 78.8 % (47-70); Platelet Count 326 K/mm3 (150-450); RBC Distribution Width CV 12.1 % (11.6-14.6); RBC Distribution Width SD 37.4 fl (35.1-43.9); Red Blood Count 5.38 M/mm3 (4.6-6.2); White Blood Count 6.8 K/mm3 (4.4-11.0)
[2024-09-23 16:59] LABS: ALB/GLOB Ratio 1.2 RATIO (0.9-2.4); AST(SGOT) 18 U/L (15-37); Alanine Aminotransfer ALT/SGPT 27 U/L (16-61); Albumin, Serum 4.5 g/dL (3.2-5.0); Alkaline Phosphatase 55 U/L (45-117); Anion Gap 6 (5-15); BUN 14 mg/dL (7-18); BUN/Creat Ratio 9.8 RATIO (10-20); CRP < 2.90 mg/L (0.0-3.0); Calcium,Total 9.6 mg/dL (8.5-10.1); Chloride 104 mmol/L (98-107); Creatinine, Serum 1.43 mg/dL (0.70-1.30); EST Glomerular Filtration Rate 58 mL/min (>60); Est Glom Filt Rate - Afr Amer 70 mL/min (>60); Globulin 3.8 g/dL (2.2-4.2); Glucose 99 mg/dL (74-106); Potassium 3.5 mmol/L (3.5-5.1); Protein, Total 8.3 g/dL (6.4-8.2); Sodium Level 141 mmol/L (136-145)
[2024-09-23 17:08] LABS: Vitamin D,25 Hydroxy 25.2 ng/mL
[2024-09-25 05:06] LABS: Hepatitis B Core Ab Total Negative (Negative)
== END | disposition home or self-care (01) ==
LOC: LAB 15:35
PROVIDERS: PCP Internal Medicine; Referring Provider Nurse Practitioner Acute Care; Visit Provider Nurse Practitioner Acute Care
DX: K51.90 Ulcerative colitis, unspecified, without complications (principal)
CPT/HCPCS: 36415; 80053; 82306; 85025; 86140; 86704

== ENCOUNTER → 2024-10-12 | Outpatient (CLI) | payer OTHER, SELFPAY ==
[2024-10-12 10:19] LABS: Absolute Lymphocyte Count 0.69 X10^3/uL (0.83-4.51); Absolute Neutrophil Count 2.6 X10^3/uL (2.0-7.7); Basophil# 0.03 X10^3/uL; Basophil% 0.7 % (0-1); Eosinophils% 2.5 % (0-5); Hematocrit 43.5 % (40-54); Hemoglobin 14.4 g/dL (13.0-16.5); Lymphocyte # 0.69 X10^3/ul (0.83-4.51); Lymphocyte % 17.1 % (19-41); Mean Corp Hgb Conc 33.1 g/dL (32-36); Mean Corpuscular Hgb 28.7 pg (27.0-32.0); Mean Corpuscular Volume 86.7 fL (80-94); Mean Platelet Vol. 8.5 fl (6.2-12.0); Monocyte# 0.62 X10^3/uL; Monocyte% 15.4 % (0-10); NRBC Flagged by Analyzer 0 % (0-5); Neutrophil # 2.55 X10^3/uL (2.7-7.7); Neutrophil % 63.3 % (47-70); Platelet Count 303 K/mm3 (150-450); RBC Distribution Width SD 37.8 fl (35.1-43.9); Red Blood Count 5.02 M/mm3 (4.6-6.2)
[2024-10-12 10:40] LABS: Hepatitis B Surface Antibody Non-Reactive
[2024-10-12 11:22] LABS: AST(SGOT) 18 U/L (15-37); Alanine Aminotransfer ALT/SGPT 32 U/L (16-61); Albumin, Serum 3.7 g/dL (3.2-5.0); Alkaline Phosphatase 54 U/L (45-117); Anion Gap 6 (5-15); BUN 14 mg/dL (7-18); BUN/Creat Ratio 12.8 RATIO (10-20); Calcium,Total 9.3 mg/dL (8.5-10.1); Chloride 106 mmol/L (98-107); Cholesterol 188 mg/dL (200); Creatinine, Serum 1.09 mg/dL (0.70-1.30); EST Glomerular Filtration Rate 79 mL/min (>60); Est Glom Filt Rate - Afr Amer 95 mL/min (>60); Globulin 3.7 g/dL (2.2-4.2); Glucose 87 mg/dL (74-106); High Density Lipoprotein 53 mg/dL; Protein, Total 7.4 g/dL (6.4-8.2); Sodium Level 140 mmol/L (136-145); Triglycerides 176 mg/dL; Very Low Density Lipoprotein 35 mg/dL (5-40)
== END | disposition home or self-care (01) ==
LOC: LAB 09:37
PROVIDERS: PCP Internal Medicine; Referring Provider Nurse Practitioner Acute Care; Visit Provider Nurse Practitioner Acute Care
DX: K51.30 Ulcerative (chronic) rectosigmoiditis without complications (principal); D70.9 Neutropenia, unspecified; N17.9 Acute kidney failure, unspecified
CPT/HCPCS: 36415; 80053; 80061; 85025; 86706

== ENCOUNTER → 2024-10-19 | Outpatient (CLI) | payer OTHER, SELFPAY ==
[2024-10-19 10:48] LABS: Absolute Lymphocyte Count 1.07 X10^3/uL (0.83-4.51); Absolute Neutrophil Count 3.2 X10^3/uL (2.0-7.7); Basophil# 0.06 X10^3/uL; Basophil% 1.2 % (0-1); Eosinophil# 0.14 X10^3/uL; Eosinophils% 2.8 % (0-5); Hematocrit 42.8 % (40-54); Hemoglobin 14.3 g/dL (13.0-16.5); Lymphocyte # 1.07 X10^3/ul (0.83-4.51); Lymphocyte % 21.1 % (19-41); Mean Corp Hgb Conc 33.4 g/dL (32-36); Mean Corpuscular Hgb 29.1 pg (27.0-32.0); Mean Corpuscular Volume 87.2 fL (80-94); Mean Platelet Vol. 8.8 fl (6.2-12.0); Monocyte% 11.8 % (0-10); NRBC Flagged by Analyzer 0 % (0-5); Neutrophil # 3.19 X10^3/uL (2.7-7.7); Neutrophil % 62.7 % (47-70); Platelet Count 300 K/mm3 (150-450); RBC Distribution Width CV 12.3 % (11.6-14.6); RBC Distribution Width SD 38.7 fl (35.1-43.9); Red Blood Count 4.91 M/mm3 (4.6-6.2); White Blood Count 5.1 K/mm3 (4.4-11.0)
== END | disposition home or self-care (01) ==
LOC: LAB 09:59
PROVIDERS: PCP Internal Medicine; Referring Provider Nurse Practitioner Acute Care; Visit Provider Nurse Practitioner Acute Care
DX: D72.810 Lymphocytopenia (principal); K51.30 Ulcerative (chronic) rectosigmoiditis without complications
CPT/HCPCS: 36415; 85025

== ENCOUNTER → 2024-11-06 | Outpatient (CLI) | payer OTHER, SELFPAY ==
[2024-11-06 13:51] LABS: Absolute Lymphocyte Count 1.01 X10^3/uL (0.83-4.51); Absolute Neutrophil Count 2.4 X10^3/uL (2.0-7.7); Basophil# 0.04 X10^3/uL; Eosinophil# 0.02 X10^3/uL; Eosinophils% 0.5 % (0-5); Lymphocyte # 1.01 X10^3/ul (0.83-4.51); Mean Corp Hgb Conc 33.3 g/dL (32-36); Mean Corpuscular Hgb 29.1 pg (27.0-32.0); Mean Corpuscular Volume 87.2 fL (80-94); Mean Platelet Vol. 8.8 fl (6.2-12.0); Monocyte# 0.42 X10^3/uL; Monocyte% 10.8 % (0-10); NRBC Flagged by Analyzer 0 % (0-5); Neutrophil # 2.38 X10^3/uL (2.7-7.7); Neutrophil % 61.4 % (47-70); Platelet Count 255 K/mm3 (150-450); RBC Distribution Width CV 12.4 % (11.6-14.6); RBC Distribution Width SD 39.7 fl (35.1-43.9); Red Blood Count 5.16 M/mm3 (4.6-6.2); White Blood Count 3.9 K/mm3 (4.4-11.0)
[2024-11-06 17:59] LABS: Vitamin D,25 Hydroxy 32.1 ng/mL (30-100)
== END | disposition home or self-care (01) ==
LOC: LAB 13:19
PROVIDERS: PCP Internal Medicine; Referring Provider Nurse Practitioner Acute Care; Visit Provider Nurse Practitioner Acute Care
DX: K51.30 Ulcerative (chronic) rectosigmoiditis without complications (principal)
CPT/HCPCS: 36415; 82306; 85025

== ENCOUNTER → 2025-01-01 | Outpatient (CLI) | payer OTHER, SELFPAY ==
[2025-01-01 11:20] LABS: Absolute Lymphocyte Count 0.77 X10^3/uL (0.83-4.51); Absolute Neutrophil Count 2.1 X10^3/uL (2.0-7.7); Basophil# 0.02 X10^3/uL; Basophil% 0.6 % (0-1); Eosinophil# 0.02 X10^3/uL; Eosinophils% 0.6 % (0-5); Hematocrit 46.6 % (40-54); Hemoglobin 15.8 g/dL (13.0-16.5); Lymphocyte # 0.77 X10^3/ul (0.83-4.51); Lymphocyte % 23.5 % (19-41); Mean Corp Hgb Conc 33.9 g/dL (32-36); Mean Corpuscular Volume 85.5 fL (80-94); Monocyte# 0.36 X10^3/uL; NRBC Flagged by Analyzer 0 % (0-5); Platelet Count 259 K/mm3 (150-450); RBC Distribution Width CV 12.2 % (11.6-14.6); RBC Distribution Width SD 37.9 fl (35.1-43.9); Red Blood Count 5.45 M/mm3 (4.6-6.2); White Blood Count 3.3 K/mm3 (4.4-11.0)
[2025-01-01 12:33] LABS: Vitamin D,25 Hydroxy 30.8 ng/mL (30-100)
[2025-01-01 12:45] LABS: ALB/GLOB Ratio 1.8 RATIO (0.9-2.4); AST(SGOT) 24 U/L (<=37); Alanine Aminotransfer ALT/SGPT 18 U/L (<=46); Albumin, Serum 4.7 g/dL (3.5-5.0); Alkaline Phosphatase 49 U/L (40-129); Anion Gap 11 (5-15); BUN 11 mg/dL (4-19); BUN/Creat Ratio 10.4 RATIO (10-20); Carbon Dioxide 24.3 mmol/L (21.0-32.0); Chloride 104 mmol/L (98-108); EST Glomerular Filtration Rate 86 (>60); Globulin 2.6 g/dL (2.2-4.2); Glucose 93 mg/dL (70-99); Potassium 4.2 mmol/L (3.3-5.1); Protein, Total 7.3 g/dL (5.9-8.4); Sodium Level 139 mmol/L (133-145); Total Bilirubin 0.46 mg/dL (0.00-1.30)
[2025-01-01 12:46] LABS: CRP < 3.00 mg/L (0.0-3.0)
== END | disposition home or self-care (01) ==
LOC: LAB 10:00
PROVIDERS: PCP Internal Medicine
DX: K51.30 Ulcerative (chronic) rectosigmoiditis without complications (principal); E55.9 Vitamin D deficiency, unspecified
CPT/HCPCS: 36415; 80053; 82306; 85025; 86140

== ENCOUNTER → 2025-01-05 | Outpatient (CLI) | payer OTHER, SELFPAY ==
[2025-01-08 15:08] LABS: Calprotectin, Stool 73 ug/g (0-120)
== END | disposition home or self-care (01) ==
LOC: LABSPEC 15:14
PROVIDERS: PCP Internal Medicine
DX: K51.30 Ulcerative (chronic) rectosigmoiditis without complications (principal); E55.9 Vitamin D deficiency, unspecified
CPT/HCPCS: 83993

== ENCOUNTER 2025-04-05 10:03 | Day surgery (SDC) | payer OTHER, SELFPAY ==
[2025-04-05] VITALS (8 sets, daily range): BP systolic 111–148; BP diastolic 61–84; PULSE 48–56; RESP 16; TEMP 36.2–36.6; O2SAT 96–100; BMI 24.7
[2025-04-05 10:20] LABS: Hematocrit 43.7 % (40-54); Hemoglobin 15.0 g/dL (13.0-16.5); Immature Granulocytes Count 0.010 X10^3/uL (0.0-0.0); Mean Corp Hgb Conc 34.3 g/dL (32-36); Mean Corpuscular Volume 86.4 fL (80-94); Mean Platelet Vol. 8.8 fl (6.2-12.0); NRBC Flagged by Analyzer 0 % (0-5); Platelet Count 258 K/mm3 (150-450); RBC Distribution Width CV 12.5 % (11.6-14.6); RBC Distribution Width SD 39.0 fl (35.1-43.9); Red Blood Count 5.06 M/mm3 (4.6-6.2); White Blood Count 3.2 K/mm3 (4.4-11.0)
[2025-04-05] MEDS: Lactated Ringers 1,000 ML 15 ML IV (10:35)
[2025-04-05 10:54] LABS: AST(SGOT) 23 U/L (<=37); Alanine Aminotransfer ALT/SGPT 19 U/L (<=46); Albumin, Serum 4.6 g/dL (3.5-5.0); Alkaline Phosphatase 49 U/L (40-129); Anion Gap 11 (5-15); BUN 12 mg/dL (4-19); BUN/Creat Ratio 11.2 RATIO (10-20); CRP < 3.00 mg/L (0.0-3.0); Calcium,Total 9.7 mg/dL (7.6-11.0); Carbon Dioxide 26.3 mmol/L (21.0-32.0); Chloride 103 mmol/L (98-108); Estimated Creatinine Clearance 86.69 ml/min (50-250); Globulin 2.6 g/dL (2.2-4.2); Glucose 104 mg/dL (70-99); Potassium 4.6 mmol/L (3.3-5.1)
[2025-04-07 08:09] LABS: Calprotectin, Stool 680 ug/g (0-120)
== END 2025-04-05 12:40 | disposition home or self-care (01) ==
LOC: EN 10:05 → AC 10:08
PROVIDERS: PCP Internal Medicine; Referring Provider Nurse Practitioner Acute Care; Visit Provider Internal Medicine Gastroenterology
PROC: 0DJD8ZZ Inspection of Lower Intestinal Tract, Via Natural or Artificial Opening Endoscopic (ICD-10-PCS; CPT 45330; principal; 2025-04-05 11:25)
DX: K51.30 Ulcerative (chronic) rectosigmoiditis without complications (principal); Z79.899 Other long term (current) drug therapy
CPT/HCPCS: 45331; 36415; 80053; 83993; 85025; 86140; 88305; J2405

== ENCOUNTER → 2025-04-23 | Outpatient (CLI) | payer OTHER, SELFPAY ==
[2025-04-23 10:50] LABS: Hematocrit 43.9 % (40-54); Hemoglobin 15.4 g/dL (13.0-16.5); Immature Granulocytes Count 0.010 X10^3/uL (0.0-0.0); Mean Corp Hgb Conc 35.1 g/dL (32-36); Mean Corpuscular Volume 85.4 fL (80-94); Mean Platelet Vol. 8.6 fl (6.2-12.0); NRBC Flagged by Analyzer 0 % (0-5); Platelet Count 270 K/mm3 (150-450); RBC Distribution Width CV 12.3 % (11.6-14.6); RBC Distribution Width SD 38.2 fl (35.1-43.9); Red Blood Count 5.14 M/mm3 (4.6-6.2); White Blood Count 2.9 K/mm3 (4.4-11.0)
== END | disposition home or self-care (01) ==
LOC: LAB 10:25
PROVIDERS: Referring Provider Nurse Practitioner Acute Care; Visit Provider Nurse Practitioner Acute Care
DX: D70.9 Neutropenia, unspecified (principal); K51.30 Ulcerative (chronic) rectosigmoiditis without complications
CPT/HCPCS: 36415; 85025